=== PATIENT | female | born 1980 | race Caucasian/White ===

== ENCOUNTER 2016-05-25 14:29 | Emergency (ER) | payer SELFPAY | END 2016-05-25 18:49 | disposition home or self-care (01) | LOC: D.ER 14:29 | DX: S80.01XA Contusion of right knee, initial encounter (principal); W18.30XA Fall on same level, unspecified, initial encounter; Y93.89 Activity, other specified; Y92.019 Unspecified place in single-family (private) house as the place of occurrence of the external cause; I50.9 Heart failure, unspecified; F17.200 Nicotine dependence, unspecified, uncomplicated ==

== ENCOUNTER 2016-06-05 19:52 | Emergency (ER) | payer SELFPAY | END 2016-06-06 00:37 | disposition home or self-care (01) | LOC: D.ER 19:52 | DX: S83.92XA Sprain of unspecified site of left knee, initial encounter (principal); X58.XXXA Exposure to other specified factors, initial encounter ==

== ENCOUNTER 2016-12-29 23:16 | Emergency (ER) | payer SELFPAY | END 2016-12-30 01:45 | disposition home or self-care (01) | LOC: D.ER 23:16 | DX: S20.312A Abrasion of left front wall of thorax, initial encounter (principal); W10.9XXA Fall (on) (from) unspecified stairs and steps, initial encounter; Y93.89 Activity, other specified; Y92.019 Unspecified place in single-family (private) house as the place of occurrence of the external cause; S22.42XA Multiple fractures of ribs, left side, initial encounter for closed fracture; I50.9 Heart failure, unspecified; I10 Essential (primary) hypertension; F17.200 Nicotine dependence, unspecified, uncomplicated ==

== ENCOUNTER 2017-01-12 13:00 | Emergency (ER) | payer SELFPAY | END 2017-01-12 16:43 | disposition home or self-care (01) | LOC: D.ER 13:00 | DX: R07.89 Other chest pain (principal); R11.10 Vomiting, unspecified ==

== ENCOUNTER 2017-02-22 12:12 | Emergency (ER) | payer SELFPAY | END 2017-02-22 14:00 | disposition home or self-care (01) | LOC: D.ER 12:12 | DX: R07.81 Pleurodynia (principal); J20.9 Acute bronchitis, unspecified; I10 Essential (primary) hypertension ==

== ENCOUNTER 2017-05-04 16:52 | Emergency (ER) | payer SELFPAY | END 2017-05-04 21:30 | disposition home or self-care (01) | LOC: D.ER 16:52 | DX: S29.8XXA Other specified injuries of thorax, initial encounter (principal); Y93.83 Activity, rough housing and horseplay; Y93.89 Activity, other specified; Y92.89 Other specified places as the place of occurrence of the external cause; F17.200 Nicotine dependence, unspecified, uncomplicated; I10 Essential (primary) hypertension ==

== ENCOUNTER 2017-07-23 08:23 | Emergency (ER) | payer SELFPAY | END 2017-07-23 10:06 | disposition home or self-care (01) | LOC: D.ER 08:23 | DX: R07.89 Other chest pain (principal); J45.909 Unspecified asthma, uncomplicated; I50.9 Heart failure, unspecified; I10 Essential (primary) hypertension; F17.200 Nicotine dependence, unspecified, uncomplicated ==

== ENCOUNTER 2017-09-05 14:43 | Emergency (ER) | payer SELFPAY | END 2017-09-05 17:00 | disposition home or self-care (01) | LOC: D.ER 14:43 | DX: N76.4 Abscess of vulva (principal); I10 Essential (primary) hypertension; I50.9 Heart failure, unspecified ==

== ENCOUNTER 2017-11-28 20:48 | Emergency (ER) | payer SELFPAY ==
[~2017-11-28] VITALS: Ht 162.6 cm; Wt 84.1 kg
[2017-11-28 21:08] VITALS: Ht 162.6 cm; Wt 84.1 kg
[2017-11-28] MEDS ORDERED: FLAGYL500 MG PO (22:31)
[2017-11-28] MEDS ORDERED: ZOFRAN ODT4 MG/UDTAB PO (22:31)
[2017-11-28] MEDS ORDERED: VIBRAMYCIN 100100 MG PO (22:31)
[2017-11-28 22:46] VITALS: BP 142/74
== END 2017-11-28 22:48 | disposition home or self-care (01) ==
LOC: D.ER 20:48
DX: L03.114 Cellulitis of left upper limb (principal); B96.89 Other specified bacterial agents as the cause of diseases classified elsewhere; S61.452A Open bite of left hand, initial encounter; W55.01XA Bitten by cat, initial encounter; Y93.89 Activity, other specified; Y92.89 Other specified places as the place of occurrence of the external cause; F17.200 Nicotine dependence, unspecified, uncomplicated

== ENCOUNTER 2018-02-18 15:33 | Emergency (ER) | payer SELFPAY ==
[~2018-02-18] VITALS: Ht 162.6 cm; Wt 82.3 kg
[~2018-02-18 15:33] MED LIST: FLAGYL500 MG PO; VIBRAMYCIN 100100 MG PO; ZOFRAN ODT4 MG/UDTAB PO
[2018-02-18 15:38] VITALS: Ht 162.6 cm; Wt 82.3 kg
[2018-02-18] MEDS ORDERED: KEFLEX500 MG PO (16:02)
[2018-02-18 16:24] VITALS: BP 142/064
== END 2018-02-18 16:25 | disposition home or self-care (01) ==
LOC: D.ER 15:33
DX: L03.012 Cellulitis of left finger (principal); I50.9 Heart failure, unspecified; F17.200 Nicotine dependence, unspecified, uncomplicated

== ENCOUNTER 2018-03-07 11:11 | Emergency (ER) | payer SELFPAY ==
[~2018-03-07] VITALS: Ht 162.6 cm; Wt 81.2 kg
[~2018-03-07 11:11] MED LIST changes: +KEFLEX500 MG PO
[2018-03-07 11:23] VITALS: Ht 162.6 cm; Wt 81.2 kg
[2018-03-07] MEDS ORDERED: ULTRAM50 MG PO (12:25)
[2018-03-07 12:42] VITALS: BP 122/64
== END 2018-03-07 12:43 | disposition home or self-care (01) ==
LOC: D.ER 11:11
DX: S22.42XA Multiple fractures of ribs, left side, initial encounter for closed fracture (principal); X58.XXXA Exposure to other specified factors, initial encounter; Y93.89 Activity, other specified; Y92.019 Unspecified place in single-family (private) house as the place of occurrence of the external cause; F17.200 Nicotine dependence, unspecified, uncomplicated

== ENCOUNTER 2018-04-26 11:36 | Emergency (ER) | payer SELFPAY ==
[~2018-04-26] VITALS: Ht 162.6 cm; Wt 70.3 kg
[~2018-04-26 11:36] MED LIST changes: +ULTRAM50 MG PO
[2018-04-26 11:41] VITALS: Ht 162.6 cm; Wt 70.3 kg
[2018-04-26] MEDS ORDERED: DOXYCYCLINE HY100 M2 PO (14:26)
[2018-04-26 14:40] VITALS: BP 133/71
== END 2018-04-26 14:40 | disposition home or self-care (01) ==
LOC: D.ER 11:36
DX: N76.4 Abscess of vulva (principal)

== ENCOUNTER 2018-10-06 10:29 | Emergency (ER) | payer SELFPAY ==
[~2018-10-06] VITALS: Ht 162.6 cm; Wt 81.8 kg
[~2018-10-06 10:29] MED LIST changes: +DOXYCYCLINE HY100 M2 PO
[2018-10-06 10:40] VITALS: Ht 162.6 cm; Wt 81.8 kg
[2018-10-06] MEDS ORDERED: VOLTAREN75 MG PO (12:35)
[2018-10-06 13:48] VITALS: BP 164/93
== END 2018-10-06 13:49 | disposition home or self-care (01) ==
LOC: D.ER 10:29
DX: R07.89 Other chest pain (principal); R07.81 Pleurodynia

== ENCOUNTER 2019-01-08 15:11 | Emergency (ER) | payer SELFPAY ==
[~2019-01-08] VITALS: Ht 162.6 cm; Wt 81.8 kg
[~2019-01-08 15:11] MED LIST changes: +VOLTAREN75 MG PO
[2019-01-08 15:55] VITALS: Ht 162.6 cm; Wt 81.8 kg
[2019-01-08] MEDS ORDERED: KEFLEX500 MG PO (17:09)
[2019-01-08 17:41] VITALS: BP 139/63
== END 2019-01-08 17:41 | disposition home or self-care (01) ==
LOC: D.ER 15:11
DX: H65.02 Acute serous otitis media, left ear (principal)

== ENCOUNTER 2019-03-15 10:56 | Emergency (ER) | payer SELFPAY ==
[~2019-03-15] VITALS: Ht 162.6 cm; Wt 77.3 kg
[2019-03-15 11:01] VITALS: Ht 162.6 cm; Wt 77.3 kg
[2019-03-15] MEDS ORDERED: ZPAK PO (12:10)
[2019-03-15] MEDS ORDERED: STERAPRED 5MG 65 M1 PO (12:10)
[2019-03-15 12:20] VITALS: BP 132/74
== END 2019-03-15 12:20 | disposition home or self-care (01) ==
LOC: D.ER 10:56
DX: H66.42 Suppurative otitis media, unspecified, left ear (principal)

== ENCOUNTER 2020-07-30 09:03 | Emergency (ER) | payer SELFPAY ==
[~2020-07-30] VITALS: Ht 162.6 cm; Wt 80.9 kg
[~2020-07-30 09:03] MED LIST changes: +STERAPRED 5MG 65 M1 PO; +ZPAK PO
[2020-07-30 09:08] VITALS: BP 144/83; Ht 162.6 cm; Wt 80.9 kg
[2020-07-30] MEDS ORDERED: PREDNISONE20 MG PO (10:11)
[2020-07-30] MEDS ORDERED: PERCOCET 10-321 EAC1 PO (10:11)
== END 2020-07-30 10:26 | disposition home or self-care (01) ==
LOC: D.ER 09:03
DX: M17.11 Unilateral primary osteoarthritis, right knee (principal); I25.2 Old myocardial infarction; Z72.0 Tobacco use

== ENCOUNTER → 2020-10-11 | Emergency (ER) | payer SELFPAY ==
[~2020-10-11] VITALS: Ht 162.6 cm; Wt 80.7 kg
[~2020-10-11] MED LIST changes: +PERCOCET 10-321 EAC1 PO; +PREDNISONE20 MG PO
[2020-10-11 14:32] VITALS: BP 172/110; Ht 162.6 cm; Wt 80.7 kg
== END | disposition home or self-care (01) ==
LOC: D.ER 14:16
DX: S90.32XA Contusion of left foot, initial encounter (principal); W22.8XXA Striking against or struck by other objects, initial encounter; Y93.9 Activity, unspecified; Y92.9 Unspecified place or not applicable